=== PATIENT | female | born 1950 | race Caucasian/White ===

== ENCOUNTER 2022-05-11 09:09 | Outpatient (CLI) | payer OTHER | END 2022-05-11 09:30 | disposition home or self-care (01) | LOC: MAMO-SONO 09:09 | DX: N63.0 Unspecified lump in unspecified breast (principal) ==

== ENCOUNTER 2022-05-11 10:53 | Outpatient (CLI) | payer OTHER | END 2022-05-11 10:56 | disposition home or self-care (01) | LOC: NUCLEAR 10:53 | DX: M85.80 Other specified disorders of bone density and structure, unspecified site (principal) ==